=== PATIENT | female | born 1940 | race Caucasian/White ===

== ENCOUNTER 2017-12-06 07:41 | Inpatient (IN) | payer MEDICARE ==
[2017-12-06] MEDS ORDERED: SODIUM CHLORIDE 0.9% 500 ML IV ONE (07:50)
--- NOTE | 2017-12-06 07:58 | ED ---
General Adult HPI - General Stated complaint: UTI Time Seen by Provider: 12/06/17 07:41 Source: RN notes reviewed - History of Present Illness Initial comments: This is a 77-year-old female who presents emergency department via EMS for altered mental status. According to the [facility] the patient has had altered mental status for a few weeks now and they have noted now that she has urinary tract infection that she would not keep her IV in and she was becoming aggressive so they sent to [facility]. The patient has been to [facility] which is also attached to the [facility] but no explanation was given to us as to why they diverted from [facility] to bring her here. According to EMS she has been stable in route but she is only alert and oriented 1 wears a few weeks ago she was alert and oriented 4. Patient is unable to give any history there is no family member with the patient and there is no caregiver with the patient. - Related Data Home Medications Medication Instructions Recorded Confirmed Aspirin 81 mg PO DAILY@79912/06/17 12/06/17 Calcium Carbonate [Tums] 1,000 mg PO Q4H PRN 12/06/17 12/06/17 Heparin Sodium,Porcine [Heparin 5,000 unit SQ TID@12/06/17 12/06/17 Sodium] LORazepam [Ativan] 1 mg PO TID@12/06/17 12/06/17 Levothyroxine Sodium [Synthroid] 50 mcg PO DAILY 12/06/17 12/06/17 Metoprolol Tartrate [Lopressor] 50 mg PO BID@799,199912/06/17 12/06/17 Multivitamins, Thera [Multivitamin 1 tab PO DAILY@0800 12/06/17 12/06/17 (formulary)] Allergies Allergy/AdvReac Type Severity Reaction Status Date / Time Penicillins Allergy Unknown Verified 12/06/17 07:55 Review of Systems ROS Statement: Those systems with pertinent positive or pertinent negative responses have been documented in the HPI. ROS Other: All systems not noted in ROS Statement are negative. General Exam - General Exam Comments Initial Comments: GENERAL: Patient is well-developed and well-nourished. Patient is nontoxic and well- hydrated and is in no acute distress. ENT: Neck is soft and supple. No significant lymphadenopathy is noted. Oropharynx is clear. Moist mucous membranes. Neck has full range of motion without eliciting any pain. EYES: The sclera were anicteric and conjunctiva were pink and moist. Extraocular movements were intact and pupils were equal round and reactive to light. Eyelids were unremarkable. PULMONARY: Unlabored respirations. Good breath sounds bilaterally. No audible rales rhonchi or wheezing was noted. CARDIOVASCULAR: There is a regular rate and rhythm without any murmurs gallops or rubs. ABDOMEN: Soft and nontender with normal bowel sounds. No palpable organomegaly was noted. There is no palpable pulsatile mass. SKIN: Skin is clear with no lesions or rashes and otherwise unremarkable. NEUROLOGIC: Patient is alert and oriented 1. Cranial nerves II through XII are grossly intact. Motor and sensory are also intact. Normal speech, volume and content. Symmetrical smile. MUSCULOSKELETAL: Normal extremities with adequate strength and full range of motion. No lower extremity swelling or edema. No calf tenderness. LYMPHATICS: No significant lymphadenopathy is noted PSYCHIATRIC: Patient is significantly altered unable to assess her psychiatric baseline Course Vital Signs 12/06/17 12/06/17 07:46 08:33 Temperature 97.9 F 98.2 F Pulse Rate 64 66 Respiratory 14 14 Rate Blood Pressure 123/66 133/58 O2 Sat by Pulse 91 L 99 Oximetry Medical Decision Making - Medical Decision Making EKG shows normal sinus rhythm at 67 bpm MN interval is 176 QRS is 80 QT interval 448 QTC is 473. Patient's EKG shows slight T-wave inversions in precordial leads V2 through V6. Chest x-ray showed no acute abnormality. CT of the brain showed no acute abnormality. Patient was sent with results of a urine culture that showed enterococcus in her urine. Though we don't have any signs of urinary tract infection with our urinalysis we will be treating for UTI. According to staff approximately one month ago patient was alert and oriented 4. I spoke with the [facility] hospitalist and admitted the patient wrote admitting orders I wrote for antibiotics on the floor - Lab Data Result diagrams: 12/06/17 08:13 12/06/17 08:13 Lab Results 12/06/17 12/06/17 12/06/17 Range/Units 08:13 08:13 08:13 WBC 6.3 (3.8-10.6) k/uL RBC 2.64 L (3.80-5.40) m/uL Hgb 9.6 L (11.4-16.0) gm/dL Hct 30.1 L (34.0-46.0) % MCV 114.1 H (80.0-100.0) fL MCH 36.4 H (25.0-35.0) pg MCHC 31.9 (31.0-37.0) g/dL RDW 13.9 (11.5-15.5) % Plt Count 223 (150-450) k/uL Neutrophils % 72 % Lymphocytes % 13 % Monocytes % 7 % Eosinophils % 3 % Basophils % 1 % Neutrophils # 4.5 (1.3-7.7) k/uL Lymphocytes # 0.8 L (1.0-4.8) k/uL Monocytes # 0.5 (0-1.0) k/uL Eosinophils # 0.2 (0-0.7) k/uL Basophils # 0.1 (0-0.2) k/uL Manual Slide Review Performed Macrocytosis Marked PT (9.0-12.0) sec INR (<1.2) APTT (22.0-30.0) sec Sodium 140 (137-145) mmol/L Potassium 3.5 (3.5-5.1) mmol/L Chloride 110 H (98-107) mmol/L Carbon Dioxide 21 L (22-30) mmol/L Anion Gap 9 mmol/L BUN 13 (7-17) mg/dL Creatinine 0.68 (0.52-1.04) mg/dL Est GFR (CKD-EPI)AfAm >90 (>60 ml/min/1.73 sqM) Est GFR (CKD-EPI)NonAf 86 (>60 ml/min/1.73 sqM) Glucose 83 (74-99) mg/dL Calcium 8.5 (8.4-10.2) mg/dL Magnesium 1.4 L (1.6-2.3) mg/dL Total Bilirubin 2.9 H (0.2-1.3) mg/dL AST 77 H (14-36) U/L ALT 40 (9-52) U/L Alkaline Phosphatase 195 H (38-126) U/L Ammonia (<30) umol/L Total Creatine Kinase 57 (30-135) U/L CK-MB (CK-2) 1.2 (0.0-2.4) ng/mL CK-MB (CK-2) Rel Index 2.1 Troponin I 0.064 H* (0.000-0.034) ng/mL Total Protein 5.7 L (6.3-8.2) g/dL Albumin 2.9 L (3.5-5.0) g/dL Urine Color Urine Appearance (Clear) Urine pH (5.0-8.0) Ur Specific [place] (1.001-1.035) Urine Protein (Negative) Urine Glucose (UA) (Negative) Urine Ketones (Negative) Urine Blood (Negative) Urine Nitrite (Negative) Urine Bilirubin (Negative) Urine Urobilinogen (<2.0) mg/dL Ur Leukocyte Esterase (Negative) Urine Opiates Screen (NotDetected) Ur Oxycodone Screen (NotDetected) Urine Methadone Screen (NotDetected) Ur Propoxyphene Screen (NotDetected) Ur Barbiturates Screen (NotDetected) U Tricyclic Antidepress (NotDetected) Ur Phencyclidine Scrn (NotDetected) Ur Amphetamines Screen (NotDetected) U Methamphetamines Scrn (NotDetected) U Benzodiazepines Scrn (NotDetected) Urine Cocaine Screen (NotDetected) U Marijuana (THC) Screen (NotDetected) 12/06/17 12/06/17 12/06/17 Range/Units 08:13 08:13 08:22 WBC (3.8-10.6) k/uL RBC (3.80-5.40) m/uL Hgb (11.4-16.0) gm/dL Hct (34.0-46.0) % MCV (80.0-100.0) fL MCH (25.0-35.0) pg MCHC (31.0-37.0) g/dL RDW (11.5-15.5) % Plt Count (150-450) k/uL Neutrophils % % Lymphocytes % % Monocytes % % Eosinophils % % Basophils % % Neutrophils # (1.3-7.7) k/uL Lymphocytes # (1.0-4.8) k/uL Monocytes # (0-1.0) k/uL Eosinophils # (0-0.7) k/uL Basophils # (0-0.2) k/uL Manual Slide Review Macrocytosis PT 11.5 (9.0-12.0) sec INR 1.2 H (<1.2) APTT 24.9 (22.0-30.0) sec Sodium (137-145) mmol/L Potassium (3.5-5.1) mmol/L Chloride (98-107) mmol/L Carbon Dioxide (22-30) mmol/L Anion Gap mmol/L BUN (7-17) mg/dL Creatinine (0.52-1.04) mg/dL Est GFR (CKD-EPI)AfAm (>60 ml/min/1.73 sqM) Est GFR (CKD-EPI)NonAf (>60 ml/min/1.73 sqM) Glucose (74-99) mg/dL Calcium (8.4-10.2) mg/dL Magnesium (1.6-2.3) mg/dL Total Bilirubin (0.2-1.3) mg/dL AST (14-36) U/L ALT (9-52) U/L Alkaline Phosphatase (38-126) U/L Ammonia <9 (<30) umol/L Total Creatine Kinase (30-135) U/L CK-MB (CK-2) (0.0-2.4) ng/mL CK-MB (CK-2) Rel Index Troponin I (0.000-0.034) ng/mL Total Protein (6.3-8.2) g/dL Albumin (3.5-5.0) g/dL Urine Color Yellow Urine Appearance Clear (Clear) Urine pH 6.5 (5.0-8.0) Ur Specific [place] 1.011 (1.001-1.035) Urine Protein Negative (Negative) Urine Glucose (UA) Negative (Negative) Urine Ketones Negative (Negative) Urine Blood Negative (Negative) Urine Nitrite Negative (Negative) Urine Bilirubin Negative (Negative) Urine Urobilinogen <2.0 (<2.0) mg/dL Ur Leukocyte Esterase Negative (Negative) Urine Opiates Screen Not Detected (NotDetected) Ur Oxycodone Screen Not Detected (NotDetected) Urine Methadone Screen Not Detected (NotDetected) Ur Propoxyphene Screen Not Detected (NotDetected) Ur Barbiturates Screen Not Detected (NotDetected) U Tricyclic Antidepress Not Detected (NotDetected) Ur Phencyclidine Scrn Not Detected (NotDetected) Ur Amphetamines Screen Not Detected (NotDetected) U Methamphetamines Scrn Not Detected (NotDetected) U Benzodiazepines Scrn Detected H (NotDetected) Urine Cocaine Screen Not Detected (NotDetected) U Marijuana (THC) Screen Not Detected (NotDetected) Disposition Clinical Impression: Altered mental status, Urinary tract infection Disposition: ADMITTED IP TO THIS HOSP Referrals: Nonstaff,Physician [Primary Care Provider] - 1-2 days Time of Disposition: 09:24
[2017-12-06] MEDS ORDERED: cefTRIAXone IN SWFI 1,000 MG/10 ML SYRINGE IVP STA (08:00)
[2017-12-06 08:27] LABS: Basophils # (A) 0.1 k/uL (0-0.2); Basophils % (A) 1 %; Eosinophils # (A) 0.2 k/uL (0-0.7); Eosinophils % (A) 3 %; HCT 30.1 % (34.0-46.0); HGB 9.6 gm/dL (11.4-16.0); Lymphocytes # (A) 0.8 k/uL (1.0-4.8); Lymphocytes % (A) 13 %; MCH 36.4 pg (25.0-35.0); MCHC 31.9 g/dL (31.0-37.0); MCV 114.1 fL (80.0-100.0); Macrocytosis Marked; Mean Platelet Volume 7.3; Monocytes # (A) 0.5 k/uL (0-1.0); Monocytes % (A) 7 %; Neutrophils # (A) 4.5 k/uL (1.3-7.7); Neutrophils % (A) 72 %; Platelet Count 223 k/uL (150-450); RBC 2.64 m/uL (3.80-5.40); RDW 13.9 % (11.5-15.5); WBC 6.3 k/uL (3.8-10.6)
[2017-12-06 08:35] LABS: Appearance,Urine Clear (Clear); Bilirubin,Urine Negative (Negative); Blood,Urine Negative (Negative); Color,Urine Yellow; Glucose,Urine (UA) Negative (Negative); Ketones,Urine Negative (Negative); Leukocyte Esterase,Urine Negative (Negative); Nitrite,Urine Negative (Negative); PH, Urine 6.5 (5.0-8.0); Protein,Urine Negative (Negative); Specific Gravity,Urine 1.011 (1.001-1.035); Urobilinogen,Urine <2.0 mg/dL (<2.0)
[2017-12-06 08:35] LABS: INR 1.2 (<1.2)
[2017-12-06 08:36] LABS: Partial Thromboplastin Time 24.9 sec (22.0-30.0); Prothrombin Time 11.5 sec (9.0-12.0)
[2017-12-06 08:40] LABS: ALT 40 U/L (9-52); AST 77 U/L (14-36); Albumin 2.9 g/dL (3.5-5.0); Alkaline Phosphatase 195 U/L (38-126); Anion Gap 9 mmol/L; Blood Urea Nitrogen 13 mg/dL (7-17); Calcium 8.5 mg/dL (8.4-10.2); Carbon Dioxide 21 mmol/L (22-30); Chloride 110 mmol/L (98-107); Glucose 83 mg/dL (74-99); Magnesium 1.4 mg/dL (1.6-2.3); Potassium 3.5 mmol/L (3.5-5.1); Sodium 140 mmol/L (137-145); Total Bilirubin 2.9 mg/dL (0.2-1.3); Total Protein 5.7 g/dL (6.3-8.2)
[2017-12-06 08:46] LABS: Amphetamine Screen,Urine Not Detected (NotDetected); Barbiturate Screen,Urine Not Detected (NotDetected); Benzodiazepines Screen,Urine Detected (NotDetected); Cocaine Screen,Urine Not Detected (NotDetected); Methadone Screen, Urine Not Detected (NotDetected); Opiate Screen,Urine Not Detected (NotDetected); Oxycodone Screen, Urine Not Detected (NotDetected); Phencyclidine Screen,Urine Not Detected (NotDetected); Tricyclic Antidepressant,Urine Not Detected (NotDetected); Urn Cannabinoid Scrn Not Detected (NotDetected)
[2017-12-06 08:51] LABS: Creatine Kinase MB 1.2 ng/mL (0.0-2.4)
[2017-12-06 09:00] LABS: Troponin I 0.064 ng/mL (0.000-0.034)
--- NOTE | 2017-12-06 09:02 | XR ---
EXAMINATION TYPE: XR chest 2V DATE OF EXAM: 12/06/2017 COMPARISON: NONE HISTORY: Altered mental status TECHNIQUE: Frontal and lateral views of the chest are obtained. FINDINGS: Coronary artery calcifications are extensive, the heart is enlarged. No evident airspace d isease, pneumothorax, or pleural effusion. There are overlying cardiac leads. Pulmonary vascularity a nd elaina within normal limits. There is eventration of the right hemidiaphragm. IMPRESSION: Cardiomegaly, coronary artery disease.
--- NOTE | 2017-12-06 09:18 | CT ---
EXAMINATION TYPE: CT brain wo con DATE OF EXAM: 12/06/2017 COMPARISON: NONE HISTORY: Altered Mental Status CT DLP: [address] of the brain was performed. The ventricles, basal cisterns and sulci overlying the cerebral convexities demonstrate mild enlargem ent. There is no evidence for intracranial hemorrhage or sulcal effacement. There is decreased attenuation about the periventricular white matter and deep white matter of both c erebral hemispheres, compatible with chronic small vessel ischemia. Differential diagnosis does inclu de demyelination. No mass effects are seen.No midline shift. Osseous calvarium is intact. If symptoms persist consider MRI. IMPRESSION: 1. Age related atrophic and chronic small vessel ischemic change without acute intracranial process s een at this time.
[2017-12-06] MEDS ORDERED: SODIUM CHLORIDE 0.9% 1,000 ML IV ONE (09:24)
[2017-12-06] MEDS ORDERED: CALCIUM CARBONATE 500 MG CHEWABLE PO PRN (10:29)
--- NOTE | 2017-12-06 12:56 | US ---
EXAMINATION TYPE: US abdomen complete DATE OF EXAM: 12/06/2017 COMPARISON: NONE CLINICAL HISTORY: Elevated Bilirubin. EXAM MEASUREMENTS: Liver Length: 12.5 cm Gallbladder Wall: 0.4 cm CBD: 0.7 cm Spleen: 9.7 cm Right Kidney: 10.3 x 4.6 x 4.4 cm Left Kidney: 9.0 x 4.1 x 4.2 cm Patient here for elevated bilirubin and altered mental status. Patient unable to cooperate with exami ner making exam technically difficult and limited throughout. Pancreas: Tail obscured by overlying bowel gas Liver: multiple probable liver cysts, difficult to visualize due to lack of patient cooperation, lar gest appears in left lobe 3.4 cm, unable to visualize in sag, limited assessment of liver, there is s omewhat coarse echotexture Gallbladder: possible stones vs sludge seen at fold Evidence for sonographic Win's sign: no CBD: dilated Spleen: limited visualization Right Kidney: limited visualization, inferior pole obscured by bowel gas Left Kidney: limited visualization, inferior pole obscured by bowel gas and cortical medullary diffe rentiation is maintained bilaterally Upper IVC: wnl Abd Aorta: Atheromatous changes without aneurysm There is no ascites. IMPRESSION: Technologist reports a limited exam. Possible tumefactive sludge within the gallbladder, question gallbladder wall thickening, correlate for cholecystitis. Possible hepatic steatosis or hepa tocellular disease.
[2017-12-06] MEDS: MAGNESIUM SULFATE-D5W PMX 1 GM in DEXTROSE/WATER 1 100ML.BAG IVPB SCH ×2 (13:36→15:23)
[2017-12-06 14:10] LABS: Glucose,Whole Blood 136 mg/dL (75-99)
[2017-12-06] MEDS: HEPARIN SODIUM,PORCINE 5,000 UNIT/ML 1 ML VIAL SQ SCH ×3 (17:20→23:37)
--- NOTE | 2017-12-06 23:36 | P.HPIM ---
History of Present Illness H&P Date: 12/06/17 Chief Complaint: Altered mental status Patient is a 77-year-old female with known history of hypertension was sent to ER from extended care facility due to altered mental status. According to the [facility] the patient has had altered mental status for a few weeks now and they have noted now that she has urinary tract infection that she would not keep her IV in and she was becoming aggressive so they sent to [facility]. The patient has been to [facility] prior to be transferred to [facility]. According to EMS she has been stable in route but she is only alert and oriented 1 . few weeks ago she was alert and oriented 4. Patient denied any complaints of abdominal pain. No nausea vomiting. No chest pain or shortness of breath. Patient does not have any fever or chills. Patient is unable to give any history there is no family member with the patient and there is no caregiver with the patient. At the [facility] patient is being treated for enterococcus urinary tract infection. UA is negative at this time CT head showed use related atrophic changes and chronic small was a disease without acute intracranial process Chest x-ray no intracranial process EKG sinus rhythm Troponin 0.064 and 0.033 Bilirubin 2.9. Slightly elevated AST Ultrasound of ABDOMEN SHOWED gallbladder sludge. Possible cholecystitis. Hepatocellular disease and fatty infiltration. Review of Systems Complete review of systems could not be obtained from the patient Past Medical History Past Medical History: Hypertension History of Any Multi-Drug Resistant Organisms: Unobtainable Past Surgical History: Unable to Obtain Past Psychological History: Unable to Obtain Smoking Status: Unknown if ever smoked Past Alcohol Use History: Unable to Obtain Past Drug Use History: Unable to Obtain - Past Family History Father Additional Family Medical History / Comment(s): Father was an alcoholic. Mother Additional Family Medical History / Comment(s): Mother is an alcoholic. Medications and Allergies Home Medications Medication Instructions Recorded Confirmed Type Aspirin 81 mg PO DAILY@0800 12/06/17 12/06/17 History Calcium Carbonate [Tums] 1,000 mg PO Q4H PRN 12/06/17 12/06/17 History Heparin Sodium,Porcine [Heparin 5,000 unit SQ TID@,,12/06/17 12/06/17 History Sodium] LORazepam [Ativan] 1 mg PO TID@,14,22 12/06/17 12/06/17 History Levothyroxine Sodium [Synthroid] 50 mcg PO DAILY 12/06/17 12/06/17 History Metoprolol Tartrate [Lopressor] 50 mg PO BID@799,199912/06/17 12/06/17 History Multivitamins, Thera [Multivitamin 1 tab PO DAILY@0800 12/06/17 12/06/17 History (formulary)] Allergies Allergy/AdvReac Type Severity Reaction Status Date / Time Penicillins Allergy Unknown Verified 12/06/17 07:55 Physical Exam Vitals: Vital Signs Temp Pulse Resp BP Pulse Ox 12/06/17 09:30 97.5 F L 751 H 6 L 136/72 97 12/06/17 08:33 98.2 F 66 14 133/58 99 12/06/17 07:46 97.9 F 64 14 123/66 91 L Intake and Output 12/05/17 12/06/17 12/06/17 22:59 06:59 14:59 Other: Weight 58.967 kg PHYSICAL EXAMINATION: Patient is lying in the bed comfortably, no acute distress, awake alert and oriented 1.. HEENT: Normocephalic. Neck is supple. Pupils reactive. Nostrils clear. Oral cavity is moist. Ears reveal no drainage. Neck reveals no JVD, carotid bruits, or thyromegaly. CHEST EXAMINATION: Trachea is central. Symmetrical expansion. No wheezing. Lung merrill clear to auscultation and percussion. CARDIAC: Normal S1, S2 with no gallops. No murmurs ABDOMEN: Soft. Bowel sounds normal. No organomegaly. No abdominal bruits. Extremities: reveal no edema. No clubbing or cyanosis Neurologically awake, alert, oriented x1 with well-coordinated movements. No focal deficits noted Skin: No rash or skin lesions. Psychiatric: Cooperative. Trying to get out of the bed. Will not basis completely Musculoskeletal: No joint swelling or deformity. Normal range of motion. Results CBC & Chem 7: 12/06/17 08:13 12/06/17 08:13 Labs: Abnormal Lab Results - Last 24 Hours (Table) 12/06/17 12/06/17 12/06/17 Range/Units 08:13 08:13 08:13 RBC 2.64 L (3.80-5.40) m/uL Hgb 9.6 L (11.4-16.0) gm/dL Hct 30.1 L (34.0-46.0) % MCV 114.1 H (80.0-100.0) fL MCH 36.4 H (25.0-35.0) pg Lymphocytes # 0.8 L (1.0-4.8) k/uL INR (<1.2) Chloride 110 H (98-107) mmol/L Carbon Dioxide 21 L (22-30) mmol/L Magnesium 1.4 L (1.6-2.3) mg/dL Total Bilirubin 2.9 H (0.2-1.3) mg/dL AST 77 H (14-36) U/L Alkaline Phosphatase 195 H (38-126) U/L Troponin I 0.064 H* (0.000-0.034) ng/mL Total Protein 5.7 L (6.3-8.2) g/dL Albumin 2.9 L (3.5-5.0) g/dL U Benzodiazepines Scrn (NotDetected) 12/06/17 12/06/17 Range/Units 08:13 08:22 RBC (3.80-5.40) m/uL Hgb (11.4-16.0) gm/dL Hct (34.0-46.0) % MCV (80.0-100.0) fL MCH (25.0-35.0) pg Lymphocytes # (1.0-4.8) k/uL INR 1.2 H (<1.2) Chloride (98-107) mmol/L Carbon Dioxide (22-30) mmol/L Magnesium (1.6-2.3) mg/dL Total Bilirubin (0.2-1.3) mg/dL AST (14-36) U/L Alkaline Phosphatase (38-126) U/L Troponin I (0.000-0.034) ng/mL Total Protein (6.3-8.2) g/dL Albumin (3.5-5.0) g/dL U Benzodiazepines Scrn Detected H (NotDetected) Thrombosis Risk Factor Assmnt - DVT/VTE Prophylaxis DVT/VTE Prophylaxis: Pharmacologic Prophylaxis ordered Assessment and Plan Assessment: Altered mental status. Possible metabolic encephalopathy Recent urinary tract infection with enterococcus as per [facility] report Elevated bilirubin with gallbladder sludge. Possible acute cholecystitis Elevated troponin possible type II [place] Hypertension history Hypokalemia and hypomagnesemia\ Macrocytic anemia. DVT prophylaxis Plan: Patient will be continued on antibiotics in the form of ceftriaxone for urinary tract infection and follow-up urine culture report. Replace electrolyte. Ultrasound of the abdomen was done and general surgery will be consulted. Repeat CBC and BMP tomorrow. Further recommendations based on the clinical course. Time with Patient: Greater than 30
[2017-12-06] MEDS: LORazepam 1 MG TAB PO PRN (23:37)
[2017-12-07] MEDS: LEVOTHYROXINE 50 MCG TAB PO SCH (06:36)
[2017-12-07 06:41] LABS: Basophils # (A) 0.1 k/uL (0-0.2); Basophils % (A) 1 %; Eosinophils # (A) 0.2 k/uL (0-0.7); Eosinophils % (A) 4 %; HCT 28.6 % (34.0-46.0); Hypochromasia Slight; Lymphocytes # (A) 1.1 k/uL (1.0-4.8); Lymphocytes % (A) 21 %; MCH 36.6 pg (25.0-35.0); MCHC 31.4 g/dL (31.0-37.0); MCV 116.3 fL (80.0-100.0); Mean Platelet Volume 7.4; Monocytes # (A) 0.4 k/uL (0-1.0); Monocytes % (A) 8 %; Neutrophils # (A) 3.3 k/uL (1.3-7.7); Neutrophils % (A) 62 %; Platelet Count 193 k/uL (150-450); RBC 2.46 m/uL (3.80-5.40); RDW 13.8 % (11.5-15.5); WBC 5.2 k/uL (3.8-10.6)
[2017-12-07 06:50] LABS: Macrocytosis Marked
[2017-12-07 06:51] LABS: ALT 39 U/L (9-52); AST 71 U/L (14-36); Albumin 2.6 g/dL (3.5-5.0); Alkaline Phosphatase 181 U/L (38-126); Anion Gap 9 mmol/L; Blood Urea Nitrogen 7 mg/dL (7-17); Carbon Dioxide 17 mmol/L (22-30); Chloride 112 mmol/L (98-107); Glucose 85 mg/dL (74-99); Potassium 3.4 mmol/L (3.5-5.1); Sodium 138 mmol/L (137-145); Total Bilirubin 2.5 mg/dL (0.2-1.3); Total Protein 5.3 g/dL (6.3-8.2)
[2017-12-07] MEDS ORDERED: Potassium Replacement Protocol 1 EACH MISC MISCELLANE PRN (08:56)
[2017-12-07] MEDS: cefTRIAXone IN SWFI 1,000 MG/10 ML SYRINGE IVP SCH (09:33)
[2017-12-07] MEDS: ASPIRIN 81 MG PO SCH (09:44)
[2017-12-07] MEDS: HEPARIN SODIUM,PORCINE 5,000 UNIT/ML 1 ML VIAL SQ SCH ×3 (09:44→23:36)
[2017-12-07] MEDS: MULTIVITAMINS, THERA 1 EACH TAB PO SCH (09:45)
[2017-12-07] MEDS: MAGNESIUM SULFATE-D5W PMX 1 GM in DEXTROSE/WATER 1 100ML.BAG IVPB SCH ×2 (09:45→11:31)
[2017-12-07] MEDS: POTASSIUM CHLORIDE ER 20 MEQ TAB.ER PO SCH ×2 (09:45→11:31)
--- NOTE | 2017-12-07 13:44 | P.GSCN ---
History of Present Illness Consult date: 12/07/17 Reason for Consult: Gallstones History of present illness: Patient hospitalized because of change in mental status. She stays at the intermediate. She was disoriented. Denies pain. No nausea or vomiting. Tolerating diet. Liver enzymes were slightly elevated. For that reason an abdominal ultrasound was ordered and shows possible gallstones or sludge. Patient was also thought to have hepatocellular disease on ultrasound. Patient is upset at the floor staff this morning. She states she is going home. She refuses any physical exam at this time. She is afebrile. Review of Systems ROS unobtainable: due to mental status Past Medical History Past Medical History: Hypertension Additional Past Medical History / Comment(s): Pt recently admitted to [facility] with UTI and has had confusion for the past few weeks. Other hx: Hypothyroid, insomnia, fatty liver, ETOH abuse, UTIs-current UTI. History of Any Multi-Drug Resistant Organisms: Unobtainable Past Surgical History: Unable to Obtain Additional Past Surgical History / Comment(s): Bilateral cataract removals, L arm fracture with surgical repair-unsure if any hardware. Past Anesthesia/Blood Transfusion Reactions: No Reported Reaction Past Psychological History: Unable to Obtain Smoking Status: Unknown if ever smoked Past Alcohol Use History: Unable to Obtain Past Drug Use History: Unable to Obtain - Past Family History Father Additional Family Medical History / Comment(s): Father was an alcoholic. Mother Additional Family Medical History / Comment(s): Mother is an alcoholic. Medications and Allergies Home Medications Medication Instructions Recorded Confirmed Type Aspirin 81 mg PO DAILY@0800 12/06/17 12/06/17 History Calcium Carbonate [Tums] 1,000 mg PO Q4H PRN 12/06/17 12/06/17 History Heparin Sodium,Porcine [Heparin 5,000 unit SQ TID@12/06/17 12/06/17 History Sodium] LORazepam [Ativan] 1 mg PO TID@12/06/17 12/06/17 History Levothyroxine Sodium [Synthroid] 50 mcg PO DAILY 12/06/17 12/06/17 History Metoprolol Tartrate [Lopressor] 50 mg PO BID@0800,199912/06/17 12/06/17 History Multivitamins, Thera [Multivitamin 1 tab PO DAILY@0800 12/06/17 12/06/17 History (formulary)] Allergies Allergy/AdvReac Type Severity Reaction Status Date / Time Penicillins Allergy Unknown Verified 12/06/17 07:55 Surgical - Exam Vital Signs Temp Pulse Resp BP Pulse Ox 97.9 F 64 14 123/66 91 L 12/06/17 07:46 12/06/17 07:46 12/06/17 07:46 12/06/17 07:46 12/06/17 07:46 Physical exam: General: Well-developed, well-nourished Neuro: Alert and oriented to person and place Abdomen: Refused Results - Labs 12/07/17 06:20 12/07/17 06:20 Abnormal Lab Results - Last 24 Hours (Table) 12/06/17 12/07/17 12/07/17 Range/Units 14:06 06:20 06:20 RBC 2.46 L (3.80-5.40) m/uL Hgb 9.0 L (11.4-16.0) gm/dL Hct 28.6 L (34.0-46.0) % MCV 116.3 H (80.0-100.0) fL MCH 36.6 H (25.0-35.0) pg Potassium 3.4 L (3.5-5.1) mmol/L Chloride 112 H (98-107) mmol/L Carbon Dioxide 17 L (22-30) mmol/L POC Glucose (mg/dL) 136 H (75-99) mg/dL Calcium 8.0 L (8.4-10.2) mg/dL Total Bilirubin 2.5 H (0.2-1.3) mg/dL AST 71 H (14-36) U/L Alkaline Phosphatase 181 H (38-126) U/L Total Protein 5.3 L (6.3-8.2) g/dL Albumin 2.6 L (3.5-5.0) g/dL Diabetes panel 12/07/17 Range/Units 06:20 Sodium 138 (137-145) mmol/L Potassium 3.4 L (3.5-5.1) mmol/L Chloride 112 H (98-107) mmol/L Carbon Dioxide 17 L (22-30) mmol/L BUN 7 (7-17) mg/dL Creatinine 0.57 (0.52-1.04) mg/dL Glucose 85 (74-99) mg/dL Calcium 8.0 L (8.4-10.2) mg/dL AST 71 H (14-36) U/L ALT 39 (9-52) U/L Alkaline Phosphatase 181 H (38-126) U/L Total Protein 5.3 L (6.3-8.2) g/dL Albumin 2.6 L (3.5-5.0) g/dL Calcium panel 12/07/17 Range/Units 06:20 Calcium 8.0 L (8.4-10.2) mg/dL Albumin 2.6 L (3.5-5.0) g/dL Pituitary panel 12/07/17 Range/Units 06:20 Sodium 138 (137-145) mmol/L Potassium 3.4 L (3.5-5.1) mmol/L Chloride 112 H (98-107) mmol/L Carbon Dioxide 17 L (22-30) mmol/L BUN 7 (7-17) mg/dL Creatinine 0.57 (0.52-1.04) mg/dL Glucose 85 (74-99) mg/dL Calcium 8.0 L (8.4-10.2) mg/dL Adrenal panel 12/07/17 Range/Units 06:20 Sodium 138 (137-145) mmol/L Potassium 3.4 L (3.5-5.1) mmol/L Chloride 112 H (98-107) mmol/L Carbon Dioxide 17 L (22-30) mmol/L BUN 7 (7-17) mg/dL Creatinine 0.57 (0.52-1.04) mg/dL Glucose 85 (74-99) mg/dL Calcium 8.0 L (8.4-10.2) mg/dL Total Bilirubin 2.5 H (0.2-1.3) mg/dL AST 71 H (14-36) U/L ALT 39 (9-52) U/L Alkaline Phosphatase 181 H (38-126) U/L Total Protein 5.3 L (6.3-8.2) g/dL Albumin 2.6 L (3.5-5.0) g/dL Assessment and Plan (1) Gallbladder sludge Narrative/Plan: Given the lack of abdominal pain it seems unlikely that acute cholecystitis as the etiology for the patient's confusion. It is disconcerting that she is refusing an exam and I will reattempt an examination if the patient is not discharged today. Would consider HIDA scan if the concern for cholecystitis persists. Continue diet for now. Will follow. Current Visit: Yes Status: Acute Code(s): K82.8 - OTHER SPECIFIED DISEASES OF GALLBLADDER SNOMED Code(s): 29998312
--- NOTE | 2017-12-07 15:36 | P.PN ---
Subjective Progress Note Date: 12/07/17 Principal diagnosis: Altered mental status. Patient is a 77-year-old female with known history of hypertension was sent to ER from extended care facility due to altered mental status. According to the longterm the patient has had altered mental status for a few weeks now and they have noted now that she has urinary tract infection that she would not keep her IV in and she was becoming aggressive so they sent to [facility]. The patient has been to [facility] prior to be transferred to [facility]. According to EMS she has been stable in route but she is only alert and oriented 1 . few weeks ago she was alert and oriented 4. Patient denied any complaints of abdominal pain. No nausea vomiting. No chest pain or shortness of breath. Patient does not have any fever or chills. Patient is unable to give any history there is no family member with the patient and there is no caregiver with the patient. At the longterm patient is being treated for enterococcus urinary tract infection. UA is negative at this time CT head showed use related atrophic changes and chronic small was a disease without acute intracranial process Chest x-ray no intracranial process EKG sinus rhythm Troponin 0.064 and 0.033 Bilirubin 2.9. Slightly elevated AST Ultrasound of ABDOMEN SHOWED gallbladder sludge. Possible cholecystitis. Hepatocellular disease and fatty infiltration. 12/07/2017 Patient is more awake and oriented today. Able to sit in the chair and tolerating oral diet. Denied any complaints of abdominal pain. No nausea no vomiting. Discussed with her son at bedside. Aberrantly patient has been having alcohol abuse and last drink was about 10 days back. Patient was seen by general surgery and due to lack of pain and some likely acute cholecystitis. Bilirubin level is trending down and hepatocellular disease is likely due to alcohol abuse. No fever no chills. Patient is being continued on antibiotics in the form of ceftriaxone. Will follow up urine culture from outside hospital facility before antibiotics. Monitor for alcohol withdrawal symptoms as well. All other review of systems negative except the above Active Medications Generic Name Dose Route Start Last Admin Trade Name Freq PRN Reason Stop Dose Admin Aspirin 81 mg 12/07/17 08:00 12/07/17 09:44 Aspirin PO 81 mg DAILY@0800 XANDER Administration Calcium Carbonate/Glycine 1,000 mg 12/06/17 10:29 Tums PO Q4H PRN Dyspepsia Ceftriaxone Sodium 1,000 mg 12/07/17 09:00 12/07/17 09:33 Rocephin IVP 1,000 mg Q24HR XANDER Administration Heparin Sodium (Porcine) 5,000 unit 12/07/17 00:00 12/07/17 09:44 Heparin SQ 5,000 unit Q8HR XANDER Administration Levothyroxine Sodium 50 mcg 12/07/17 06:30 12/07/17 06:36 Synthroid PO 50 mcg 0630 XANDER Administration Lorazepam 1 mg 12/06/17 21:14 12/06/17 23:37 Ativan PO 1 mg Q8HR PRN Administration Anxiety Miscellaneous Information 1 each 12/07/17 08:56 Potassium Per Protocol MISCELLANE DAILY PRN Per Protocol Protocol Multivitamins 1 each 12/07/17 08:00 12/07/17 09:45 Theragran PO 1 each DAILY@0800 XANDER Administration Objective - Vital Signs Vital signs: Vital Signs Temp 97.1 F L 12/07/17 11:27 Pulse 81 12/07/17 11:27 Resp 20 12/07/17 11:27 BP 129/72 12/07/17 11:27 Pulse Ox 94 L 12/07/17 11:27 Intake & Output 12/06/17 12/07/17 12/07/17 18:59 06:59 18:59 Intake Total 180 625 120 Output Total 150 400 Balance 180 475 -280 Weight 58.967 kg 61.9 kg Intake: IV 10 0.9 10 Intake, IV Titration 375 Amount Sodium Chloride 0.9% 1, 375 000 ml @ 75 mls/hr IV . [id number] Rx#:[id number] Oral 180 240 120 Output: Urine 150 400 Other: Voiding Method Diaper Bedside Commode Bedside Commode Incontinent Diaper Incontinent # Voids 3 - Exam PHYSICAL EXAMINATION: Patient is lying in the bed comfortably, no acute distress, awake alert and oriented. Mild confusion.. HEENT: Normocephalic. Neck is supple. Pupils reactive. Nostrils clear. Oral cavity is moist. Ears reveal no drainage. Neck reveals no JVD, carotid bruits, or thyromegaly. CHEST EXAMINATION: Trachea is central. Symmetrical expansion. Lung merrill clear to auscultation and percussion. CARDIAC: Normal S1, S2 with no gallops. No murmurs ABDOMEN: Soft. Nontender. No right upper quadrant tenderness. Bowel sounds normal. No organomegaly. No abdominal bruits. Extremities: reveal no edema. No clubbing or cyanosis Neurologically awake, alert, oriented x3 with well-coordinated movements. No focal deficits noted Skin: No rash or skin lesions. Psychiatric: Coperative. Nonsuicidal Musculoskeletal: No joint swelling or deformity. Normal range of motion. - Labs CBC & Chem 7: 12/07/17 06:20 12/07/17 06:20 Labs: Abnormal Lab Results - Last 24 Hours (Table) 12/07/17 12/07/17 Range/Units 06:20 06:20 RBC 2.46 L (3.80-5.40) m/uL Hgb 9.0 L (11.4-16.0) gm/dL Hct 28.6 L (34.0-46.0) % MCV 116.3 H (80.0-100.0) fL MCH 36.6 H (25.0-35.0) pg Potassium 3.4 L (3.5-5.1) mmol/L Chloride 112 H (98-107) mmol/L Carbon Dioxide 17 L (22-30) mmol/L Calcium 8.0 L (8.4-10.2) mg/dL Total Bilirubin 2.5 H (0.2-1.3) mg/dL AST 71 H (14-36) U/L Alkaline Phosphatase 181 H (38-126) U/L Total Protein 5.3 L (6.3-8.2) g/dL Albumin 2.6 L (3.5-5.0) g/dL Assessment and Plan Assessment: Altered mental status. Possible metabolic encephalopathy. Resolving now. Recent urinary tract infection with enterococcus as per longterm report. Will follow-up urine culture report Alcohol abuse. Last drink in 10 days back Elevated bilirubin with gallbladder sludge. Suspected acute cholecystitis. Patient otherwise denied abdominal pain. Elevated troponin possible type II [place]. Troponin normalized now Hypertension history Hypokalemia and hypomagnesemia\. Replaced Macrocytic anemia.Likely related to EtOH abuse DVT prophylaxisHeparin subcu Plan: Patient will be continued on antibiotics in the form of ceftriaxone for urinary tract infection and follow-up urine culture report. Replace electrolyte. Ultrasound of the abdomen was done and general surgeryis following.. Repeat CBC and BMP tomorrow. Further recommendations based on the clinical course. Time with Patient: Greater than 30
[2017-12-07] MEDS: THIAMINE 100 MG TAB PO SCH (17:36)
[2017-12-07] MEDS: LORazepam 1 MG TAB PO PRN (21:58)
[2017-12-07] MEDS: METOPROLOL TARTRATE 50 MG TAB PO SCH (22:27)
[2017-12-08] MEDS: LEVOTHYROXINE 50 MCG TAB PO SCH ×2 (06:07→06:35)
[2017-12-08] MEDS: LORazepam 1 MG TAB PO PRN ×2 (06:07→22:10)
[2017-12-08 06:32] LABS: Basophils # (A) 0.1 k/uL (0-0.2); Basophils % (A) 1 %; Eosinophils # (A) 0.2 k/uL (0-0.7); Eosinophils % (A) 4 %; HGB 8.3 gm/dL (11.4-16.0); Lymphocytes # (A) 1.2 k/uL (1.0-4.8); Lymphocytes % (A) 22 %; MCH 36.1 pg (25.0-35.0); MCHC 32.1 g/dL (31.0-37.0); MCV 112.5 fL (80.0-100.0); Mean Platelet Volume 7.9; Monocytes # (A) 0.4 k/uL (0-1.0); Monocytes % (A) 8 %; Neutrophils # (A) 3.3 k/uL (1.3-7.7); Neutrophils % (A) 63 %; Platelet Count 185 k/uL (150-450); RBC 2.31 m/uL (3.80-5.40); RDW 13.7 % (11.5-15.5); WBC 5.3 k/uL (3.8-10.6)
[2017-12-08 06:42] LABS: Macrocytosis Marked
[2017-12-08 06:43] LABS: ALT 40 U/L (9-52); AST 74 U/L (14-36); Albumin 2.4 g/dL (3.5-5.0); Alkaline Phosphatase 189 U/L (38-126); Anion Gap 7 mmol/L; Blood Urea Nitrogen 5 mg/dL (7-17); Carbon Dioxide 19 mmol/L (22-30); Chloride 111 mmol/L (98-107); Glucose 92 mg/dL (74-99); Magnesium 1.9 mg/dL (1.6-2.3); Potassium 3.8 mmol/L (3.5-5.1); Sodium 137 mmol/L (137-145); Total Bilirubin 2.2 mg/dL (0.2-1.3); Total Protein 4.9 g/dL (6.3-8.2)
[2017-12-08] MEDS: cefTRIAXone IN SWFI 1,000 MG/10 ML SYRINGE IVP SCH (07:55)
[2017-12-08] MEDS: METOPROLOL TARTRATE 50 MG TAB PO SCH ×2 (07:55→22:08)
[2017-12-08] MEDS: THIAMINE 100 MG TAB PO SCH (07:55)
[2017-12-08] MEDS: FOLIC ACID 1 MG TAB PO SCH (07:55)
[2017-12-08] MEDS: ASPIRIN 81 MG PO SCH (07:55)
[2017-12-08] MEDS: MULTIVITAMINS, THERA 1 EACH TAB PO SCH (07:55)
[2017-12-08] MEDS: HEPARIN SODIUM,PORCINE 5,000 UNIT/ML 1 ML VIAL SQ SCH ×3 (07:56→23:28)
--- NOTE | 2017-12-08 15:13 | P.PN ---
Subjective Progress Note Date: 12/08/17 Principal diagnosis: Cholelithiasis Patient far less confused today. The patient's son is present at the bedside. She denies abdominal pain. Tolerating diet. Bilirubin today is 2.2. White blood cell count 5.3. According to the son the patient is a history of heavy alcohol use in the past. She was at [facility] approximately 1-2 months ago. An MRI of the abdomen was performed at that time likely MRCP. He was told that her underlying liver disease was the cause for her jaundice this at that time. Apparently her bilirubin was quite elevated at that time. Objective - Vital Signs Vital signs: Vital Signs Temp 97.7 F 12/08/17 14:19 Pulse 64 12/08/17 14:19 Resp 14 12/08/17 14:19 BP 112/65 12/08/17 14:19 Pulse Ox 99 12/08/17 14:19 Intake & Output 12/07/17 12/08/17 12/08/17 18:59 06:59 18:59 Intake Total 280 Output Total 1000 Balance -720 Weight 62.5 kg Intake: IV 160 0.9 160 Oral 120 Output: Urine 1000 Other: Voiding Method Toilet Toilet Toilet Bedside Commode Bedside Commode Bedside Commode # Voids 1 # Bowel Movements 1 - Exam Abdomen: Soft, nontender, nondistended - Labs CBC & Chem 7: 12/08/17 05:48 12/08/17 05:48 Labs: Abnormal Lab Results - Last 24 Hours (Table) 12/08/17 12/08/17 Range/Units 05:48 05:48 RBC 2.31 L (3.80-5.40) m/uL Hgb 8.3 L (11.4-16.0) gm/dL Hct 26.0 L (34.0-46.0) % MCV 112.5 H (80.0-100.0) fL MCH 36.1 H (25.0-35.0) pg Chloride 111 H (98-107) mmol/L Carbon Dioxide 19 L (22-30) mmol/L BUN 5 L (7-17) mg/dL Calcium 8.0 L (8.4-10.2) mg/dL Total Bilirubin 2.2 H (0.2-1.3) mg/dL AST 74 H (14-36) U/L Alkaline Phosphatase 189 H (38-126) U/L Total Protein 4.9 L (6.3-8.2) g/dL Albumin 2.4 L (3.5-5.0) g/dL Assessment and Plan (1) Gallbladder sludge Narrative/Plan: Will try to obtain the MRI results from [facility] done recently. No surgical intervention planned at this time. Current Visit: Yes Status: Acute Code(s): K82.8 - OTHER SPECIFIED DISEASES OF GALLBLADDER SNOMED Code(s): 30253041
--- NOTE | 2017-12-08 22:45 | P.PN ---
Subjective Progress Note Date: 12/08/17 Principal diagnosis: Altered mental status. Patient is a 77-year-old female with known history of hypertension was sent to ER from extended care facility due to altered mental status. According to the [facility] the patient has had altered mental status for a few weeks now and they have noted now that she has urinary tract infection that she would not keep her IV in and she was becoming aggressive so they sent to [facility]. The patient has been to [facility] prior to be transferred to [facility]. According to EMS she has been stable in route but she is only alert and oriented 1 . few weeks ago she was alert and oriented 4. Patient denied any complaints of abdominal pain. No nausea vomiting. No chest pain or shortness of breath. Patient does not have any fever or chills. Patient is unable to give any history there is no family member with the patient and there is no caregiver with the patient. At the [facility] patient is being treated for enterococcus urinary tract infection. UA is negative at this time CT head showed use related atrophic changes and chronic small was a disease without acute intracranial process Chest x-ray no intracranial process EKG sinus rhythm Troponin 0.064 and 0.033 Bilirubin 2.9. Slightly elevated AST Ultrasound of ABDOMEN SHOWED gallbladder sludge. Possible cholecystitis. Hepatocellular disease and fatty infiltration. 12/07/2017 Patient is more awake and oriented today. Able to sit in the chair and tolerating oral diet. Denied any complaints of abdominal pain. No nausea no vomiting. Discussed with her son at bedside. Aberrantly patient has been having alcohol abuse and last drink was about 10 days back. Patient was seen by general surgery and due to lack of pain and some likely acute cholecystitis. Bilirubin level is trending down and hepatocellular disease is likely due to alcohol abuse. No fever no chills. Patient is being continued on antibiotics in the form of ceftriaxone. Will follow up urine culture from outside hospital facility before antibiotics. Monitor for alcohol withdrawal symptoms as well. 12/08/2017 Patient is more awake and oriented today. Able to tolerate oral diet. No complaints of abdominal pain. No nausea vomiting or abdominal pain. Bilirubin level trending down to 2.2 today. Gen. surgery general surgery is following. Patient went into atrial fibrillation yesterday evening. Currently maintaining sinus rhythm. Started back on beta blockers. All other review of systems negative except the above Vital Signs 12/08/17 22:05 Pulse Rate [ 84 Pulse Oximetery ] Blood Pressure 139/78 [Left Arm] Objective - Vital Signs Vital signs: Vital Signs Temp 97.7 F 12/08/17 14:19 Pulse 64 12/08/17 14:19 Resp 14 12/08/17 14:19 BP 112/65 12/08/17 14:19 Pulse Ox 99 12/08/17 14:19 Intake & Output 12/08/17 12/08/17 12/09/17 06:59 18:59 06:59 Weight 62.5 kg Other: Voiding Method Toilet Toilet Bedside Commode Bedside Commode # Voids 1 # Bowel Movements 1 - Exam PHYSICAL EXAMINATION: Patient is lying in the bed comfortably, no acute distress, awake alert and oriented. Mild confusion.. HEENT: Normocephalic. Neck is supple. Pupils reactive. Nostrils clear. Oral cavity is moist. Ears reveal no drainage. Neck reveals no JVD, carotid bruits, or thyromegaly. CHEST EXAMINATION: Trachea is central. Symmetrical expansion. Lung merrill clear to auscultation and percussion. CARDIAC: Normal S1, S2 with no gallops. No murmurs ABDOMEN: Soft. Nontender. No right upper quadrant tenderness. Bowel sounds normal. No organomegaly. No abdominal bruits. Extremities: reveal no edema. No clubbing or cyanosis Neurologically awake, alert, oriented x3 with well-coordinated movements. No focal deficits noted Skin: No rash or skin lesions. Psychiatric: Coperative. Nonsuicidal Musculoskeletal: No joint swelling or deformity. Normal range of motion. - Labs CBC & Chem 7: 12/08/17 05:48 12/08/17 05:48 Labs: Abnormal Lab Results - Last 24 Hours (Table) 12/08/17 12/08/17 Range/Units 05:48 05:48 RBC 2.31 L (3.80-5.40) m/uL Hgb 8.3 L (11.4-16.0) gm/dL Hct 26.0 L (34.0-46.0) % MCV 112.5 H (80.0-100.0) fL MCH 36.1 H (25.0-35.0) pg Chloride 111 H (98-107) mmol/L Carbon Dioxide 19 L (22-30) mmol/L BUN 5 L (7-17) mg/dL Calcium 8.0 L (8.4-10.2) mg/dL Total Bilirubin 2.2 H (0.2-1.3) mg/dL AST 74 H (14-36) U/L Alkaline Phosphatase 189 H (38-126) U/L Total Protein 4.9 L (6.3-8.2) g/dL Albumin 2.4 L (3.5-5.0) g/dL Assessment and Plan Assessment: Altered mental status. Possible metabolic encephalopathy. Resolving now. Recent urinary tract infection with enterococcus as per [facility] report. Will follow-up urine culture report Alcohol abuse. Last drink in 10 days back Paroxysmal atrial fibrillation. Continue with aspirin. Elevated bilirubin with gallbladder sludge. Suspected acute cholecystitis. Patient otherwise denied abdominal pain. Elevated troponin possible type II [place]. Troponin normalized now Hypertension history Hypokalemia and hypomagnesemia\. Replaced Macrocytic anemia.Likely related to EtOH abuse DVT prophylaxisHeparin subcu Plan: Patient will be continued on antibiotics in the form of ceftriaxone for urinary tract infection and follow-up urine culture report. Replace electrolyte. Ultrasound of the abdomen was done and general surgeryis following.. No surgical intervention needed at this time Repeat CBC and BMP tomorrow. Further recommendations based on the clinical course. Time with Patient: Greater than 30
[2017-12-09] MEDS: LORazepam 1 MG TAB PO PRN ×2 (05:29→21:12)
[2017-12-09] MEDS: LEVOTHYROXINE 50 MCG TAB PO SCH (05:30)
[2017-12-09] MEDS: ASPIRIN 81 MG PO SCH (08:34)
[2017-12-09] MEDS: THIAMINE 100 MG TAB PO SCH (08:34)
[2017-12-09] MEDS: MULTIVITAMINS, THERA 1 EACH TAB PO SCH (08:34)
[2017-12-09] MEDS: METOPROLOL TARTRATE 50 MG TAB PO SCH ×2 (08:34→21:12)
[2017-12-09] MEDS: HEPARIN SODIUM,PORCINE 5,000 UNIT/ML 1 ML VIAL SQ SCH ×3 (08:34→23:42)
[2017-12-09] MEDS: FOLIC ACID 1 MG TAB PO SCH (08:34)
[2017-12-09] MEDS: cefTRIAXone IN SWFI 1,000 MG/10 ML SYRINGE IVP SCH (08:34)
[2017-12-09 08:59] LABS: Basophils # (A) 0.1 k/uL (0-0.2); Basophils % (A) 1 %; Eosinophils # (A) 0.2 k/uL (0-0.7); Eosinophils % (A) 3 %; HCT 35.2 % (34.0-46.0); Lymphocytes # (A) 1.3 k/uL (1.0-4.8); Lymphocytes % (A) 17 %; MCH 36.7 pg (25.0-35.0); MCHC 32.3 g/dL (31.0-37.0); MCV 113.9 fL (80.0-100.0); Macrocytosis Marked; Monocytes # (A) 0.5 k/uL (0-1.0); Monocytes % (A) 6 %; Neutrophils # (A) 5.5 k/uL (1.3-7.7); Neutrophils % (A) 71 %; Platelet Count 231 k/uL (150-450); RBC 3.09 m/uL (3.80-5.40); RDW 13.6 % (11.5-15.5); WBC 7.8 k/uL (3.8-10.6)
[2017-12-09 09:00] LABS: HGB 11.3 gm/dL (11.4-16.0)
[2017-12-09 09:01] LABS: Anion Gap 14 mmol/L; Blood Urea Nitrogen 4 mg/dL (7-17); Calcium 8.9 mg/dL (8.4-10.2); Carbon Dioxide 16 mmol/L (22-30); Chloride 109 mmol/L (98-107); Glucose 86 mg/dL (74-99); Potassium 3.7 mmol/L (3.5-5.1); Sodium 139 mmol/L (137-145)
[2017-12-09 10:21] LABS: Poikilocytosis (M) Present
[2017-12-09 12:18] LABS: ALT 44 U/L (9-52); AST 94 U/L (14-36); Albumin 3.3 g/dL (3.5-5.0); Alkaline Phosphatase 237 U/L (38-126); Total Bilirubin 2.6 mg/dL (0.2-1.3); Total Protein 6.5 g/dL (6.3-8.2)
--- NOTE | 2017-12-09 12:56 | P.PN ---
Subjective Progress Note Date: 12/09/17 Principal diagnosis: Cholelithiasis Patient somewhat confused again this morning. Son present at the bedside. The MRCP performed at [place] was reviewed and showed no evidence of choledocholithiasis, malignancy, or cholelithiasis. Today's bilirubin 2.6. Denies pain. Tolerating diet. Objective - Vital Signs Vital signs: Vital Signs Temp 98.5 F 12/09/17 05:54 Pulse 79 12/09/17 05:54 Resp 17 12/09/17 05:54 BP 110/69 12/09/17 05:54 Pulse Ox 97 12/09/17 05:54 Intake & Output 12/08/17 12/09/17 12/09/17 18:59 06:59 18:59 Other: Voiding Method Toilet Toilet Toilet Bedside Commode Bedside Commode Diaper Incontinent # Voids 2 - Exam Abdomen: Soft, nontender, nondistended - Labs CBC & Chem 7: 12/09/17 07:57 12/09/17 07:57 Labs: Abnormal Lab Results - Last 24 Hours (Table) 12/09/17 12/09/17 Range/Units 07:57 07:57 RBC 3.09 L (3.80-5.40) m/uL Hgb 11.3 L D (11.4-16.0) gm/dL MCV 113.9 H (80.0-100.0) fL MCH 36.7 H (25.0-35.0) pg Chloride 109 H (98-107) mmol/L Carbon Dioxide 16 L (22-30) mmol/L BUN 4 L (7-17) mg/dL Total Bilirubin 2.6 H (0.2-1.3) mg/dL AST 94 H (14-36) U/L Alkaline Phosphatase 237 H (38-126) U/L Albumin 3.3 L (3.5-5.0) g/dL Assessment and Plan (1) Gallbladder sludge Narrative/Plan: Continue diet as tolerated. Elevated liver enzymes on the basis of underlying liver disease from chronic alcohol use. No surgical intervention planned. We' ll sign off. Please contact if needed. Current Visit: Yes Status: Acute Code(s): K82.8 - OTHER SPECIFIED DISEASES OF GALLBLADDER SNOMED Code(s): 47615645
--- NOTE | 2017-12-10 00:01 | P.PN ---
Subjective Progress Note Date: 12/09/17 Principal diagnosis: Altered mental status. Patient is a 77-year-old female with known history of hypertension was sent to ER from extended care facility due to altered mental status. According to the [place] [facility] the patient has had altered mental status for a few weeks now and they have noted now that she has urinary tract infection that she would not keep her IV in and she was becoming aggressive so they sent to [facility]. The patient has been to [facility] prior to be transferred to [facility]. According to EMS she has been stable in route but she is only alert and oriented 1 . few weeks ago she was alert and oriented 4. Patient denied any complaints of abdominal pain. No nausea vomiting. No chest pain or shortness of breath. Patient does not have any fever or chills. Patient is unable to give any history there is no family member with the patient and there is no caregiver with the patient. At the [place] [facility] patient is being treated for enterococcus urinary tract infection. UA is negative at this time CT head showed use related atrophic changes and chronic small was a disease without acute intracranial process Chest x-ray no intracranial process EKG sinus rhythm Troponin 0.064 and 0.033 Bilirubin 2.9. Slightly elevated AST Ultrasound of ABDOMEN SHOWED gallbladder sludge. Possible cholecystitis. Hepatocellular disease and fatty infiltration. 12/07/2017 Patient is more awake and oriented today. Able to sit in the chair and tolerating oral diet. Denied any complaints of abdominal pain. No nausea no vomiting. Discussed with her son at bedside. Aberrantly patient has been having alcohol abuse and last drink was about 10 days back. Patient was seen by general surgery and due to lack of pain and some likely acute cholecystitis. Bilirubin level is trending down and hepatocellular disease is likely due to alcohol abuse. No fever no chills. Patient is being continued on antibiotics in the form of ceftriaxone. Will follow up urine culture from outside hospital facility before antibiotics. Monitor for alcohol withdrawal symptoms as well. 12/08/2017 Patient is more awake and oriented today. Able to tolerate oral diet. No complaints of abdominal pain. No nausea vomiting or abdominal pain. Bilirubin level trending down to 2.2 today. Gen. surgery general surgery is following. Patient went into atrial fibrillation yesterday evening. Currently maintaining sinus rhythm. Started back on beta blockers. 12/09/2017 Patient is more awake and oriented today. Tolerating oral diet. No complaints of abdominal pain. Heart rate is better controlled. No other acute overnight issues. Continue PT OT and and anticipate discharge next 24 hours. All other review of systems negative except the above Vital Signs 12/08/17 22:05 Pulse Rate [ 84 Pulse Oximetery ] Blood Pressure 139/78 [Left Arm] Objective - Vital Signs Vital signs: Vital Signs Temp 98.5 F 12/09/17 05:54 Pulse 79 12/09/17 05:54 Resp 17 12/09/17 05:54 BP 110/69 12/09/17 05:54 Pulse Ox 97 12/09/17 05:54 Intake & Output 12/08/17 12/09/17 12/09/17 18:59 06:59 18:59 Other: Voiding Method Toilet Toilet Toilet Bedside Commode Bedside Commode Diaper Incontinent # Voids 2 2 - Exam PHYSICAL EXAMINATION: Patient is lying in the bed comfortably, no acute distress, awake alert and oriented. Mild confusion.. HEENT: Normocephalic. Neck is supple. Pupils reactive. Nostrils clear. Oral cavity is moist. Ears reveal no drainage. Neck reveals no JVD, carotid bruits, or thyromegaly. CHEST EXAMINATION: Trachea is central. Symmetrical expansion. Lung merrill clear to auscultation and percussion. CARDIAC: Normal S1, S2 with no gallops. No murmurs ABDOMEN: Soft. Nontender. No right upper quadrant tenderness. Bowel sounds normal. No organomegaly. No abdominal bruits. Extremities: reveal no edema. No clubbing or cyanosis Neurologically awake, alert, oriented x3 with well-coordinated movements. No focal deficits noted Skin: No rash or skin lesions. Psychiatric: Coperative. Nonsuicidal Musculoskeletal: No joint swelling or deformity. Normal range of motion. - Labs CBC & Chem 7: 12/09/17 07:57 12/09/17 07:57 Labs: Abnormal Lab Results - Last 24 Hours (Table) 12/09/17 12/09/17 Range/Units 07:57 07:57 RBC 3.09 L (3.80-5.40) m/uL Hgb 11.3 L D (11.4-16.0) gm/dL MCV 113.9 H (80.0-100.0) fL MCH 36.7 H (25.0-35.0) pg Chloride 109 H (98-107) mmol/L Carbon Dioxide 16 L (22-30) mmol/L BUN 4 L (7-17) mg/dL Total Bilirubin 2.6 H (0.2-1.3) mg/dL AST 94 H (14-36) U/L Alkaline Phosphatase 237 H (38-126) U/L Albumin 3.3 L (3.5-5.0) g/dL Assessment and Plan Assessment: Altered mental status. Possible metabolic encephalopathy. Resolving now. Recent urinary tract infection with enterococcus as per [place] [facility] report. Will follow-up urine culture report Alcohol abuse. Last drink in 10 days back Paroxysmal atrial fibrillation. Continue with aspirin. Elevated bilirubin with gallbladder sludge. Suspected acute cholecystitis. Patient otherwise denied abdominal pain. Elevated troponin possible type II [place]. Troponin normalized now Hypertension history Hypokalemia and hypomagnesemia\. Replaced Macrocytic anemia.Likely related to EtOH abuse DVT prophylaxisHeparin subcu Plan: Patient will be continued on antibiotics in the form of ceftriaxone for urinary tract infection and follow-up urine culture report. Replace electrolyte. Ultrasound of the abdomen was done and general surgery is following.. No surgical intervention needed at this time Repeat CBC and BMP tomorrow. Further recommendations based on the clinical course. Time with Patient: Greater than 30
[2017-12-10] MEDS: LEVOTHYROXINE 50 MCG TAB PO SCH (05:52)
[2017-12-10] MEDS: METOPROLOL TARTRATE 50 MG TAB PO SCH ×2 (07:59→20:10)
[2017-12-10] MEDS: MULTIVITAMINS, THERA 1 EACH TAB PO SCH (07:59)
[2017-12-10] MEDS: HEPARIN SODIUM,PORCINE 5,000 UNIT/ML 1 ML VIAL SQ SCH ×2 (07:59→17:55)
[2017-12-10] MEDS: cefTRIAXone IN SWFI 1,000 MG/10 ML SYRINGE IVP SCH (07:59)
[2017-12-10] MEDS: ASPIRIN 81 MG PO SCH (07:59)
[2017-12-10] MEDS: LORazepam 1 MG TAB PO PRN ×2 (08:26→18:16)
[2017-12-10] MEDS: FOLIC ACID 1 MG TAB PO SCH (13:31)
[2017-12-10] MEDS: THIAMINE 100 MG TAB PO SCH (13:31)
[2017-12-10 14:16] VITALS: RESP 18
--- NOTE | 2017-12-11 00:59 | P.PN ---
Subjective Progress Note Date: 12/10/17 Principal diagnosis: Altered mental status. Patient is a 77-year-old female with known history of hypertension was sent to ER from extended care facility due to altered mental status. According to the snf the patient has had altered mental status for a few weeks now and they have noted now that she has urinary tract infection that she would not keep her IV in and she was becoming aggressive so they sent to [facility]. The patient has been to [facility] prior to be transferred to [facility]. According to EMS she has been stable in route but she is only alert and oriented 1 . few weeks ago she was alert and oriented 4. Patient denied any complaints of abdominal pain. No nausea vomiting. No chest pain or shortness of breath. Patient does not have any fever or chills. Patient is unable to give any history there is no family member with the patient and there is no caregiver with the patient. At the snf patient is being treated for enterococcus urinary tract infection. UA is negative at this time CT head showed use related atrophic changes and chronic small was a disease without acute intracranial process Chest x-ray no intracranial process EKG sinus rhythm Troponin 0.064 and 0.033 Bilirubin 2.9. Slightly elevated AST Ultrasound of ABDOMEN SHOWED gallbladder sludge. Possible cholecystitis. Hepatocellular disease and fatty infiltration. 12/07/2017 Patient is more awake and oriented today. Able to sit in the chair and tolerating oral diet. Denied any complaints of abdominal pain. No nausea no vomiting. Discussed with her son at bedside. Aberrantly patient has been having alcohol abuse and last drink was about 10 days back. Patient was seen by general surgery and due to lack of pain and some likely acute cholecystitis. Bilirubin level is trending down and hepatocellular disease is likely due to alcohol abuse. No fever no chills. Patient is being continued on antibiotics in the form of ceftriaxone. Will follow up urine culture from outside hospital facility before antibiotics. Monitor for alcohol withdrawal symptoms as well. 12/08/2017 Patient is more awake and oriented today. Able to tolerate oral diet. No complaints of abdominal pain. No nausea vomiting or abdominal pain. Bilirubin level trending down to 2.2 today. Gen. surgery general surgery is following. Patient went into atrial fibrillation yesterday evening. Currently maintaining sinus rhythm. Started back on beta blockers. 12/09/2017 Patient is more awake and oriented today. Tolerating oral diet. No complaints of abdominal pain. Heart rate is better controlled. No other acute overnight issues. Continue PT OT and and anticipate discharge next 24 hours. 12/10/2017 Patient denied any complaints today. Tolerating oral diet. No complaints of abdominal pain. No nausea vomiting or diarrhea. Anticipate discharged to rehab pending authorization. All other review of systems negative except the above Vital Signs 12/08/17 22:05 Pulse Rate [ 84 Pulse Oximetery ] Blood Pressure 139/78 [Left Arm] Objective - Vital Signs Vital signs: Vital Signs Temp 97.6 F 12/10/17 14:06 Pulse 65 12/10/17 14:06 Resp 18 12/10/17 14:06 BP 132/84 12/10/17 14:06 Pulse Ox 100 12/10/17 14:06 Intake & Output 12/10/17 12/10/17 12/11/17 06:59 18:59 06:59 Intake Total 100 240 Balance 100 240 Intake: Oral 100 240 Other: Voiding Method Toilet Toilet Diaper Diaper Incontinent Incontinent # Voids 2 1 - Exam PHYSICAL EXAMINATION: Patient is lying in the bed comfortably, no acute distress, awake alert and oriented. Mild confusion.. HEENT: Normocephalic. Neck is supple. Pupils reactive. Nostrils clear. Oral cavity is moist. Ears reveal no drainage. Neck reveals no JVD, carotid bruits, or thyromegaly. CHEST EXAMINATION: Trachea is central. Symmetrical expansion. Lung merrill clear to auscultation and percussion. CARDIAC: Normal S1, S2 with no gallops. No murmurs ABDOMEN: Soft. Nontender. No right upper quadrant tenderness. Bowel sounds normal. No organomegaly. No abdominal bruits. Extremities: reveal no edema. No clubbing or cyanosis Neurologically awake, alert, oriented x3 with well-coordinated movements. No focal deficits noted Skin: No rash or skin lesions. Psychiatric: Coperative. Nonsuicidal Musculoskeletal: No joint swelling or deformity. Normal range of motion. - Labs CBC & Chem 7: 12/09/17 07:57 12/09/17 07:57 Assessment and Plan Assessment: Altered mental status. Possible metabolic encephalopathy. Resolving now. Recent urinary tract infection with enterococcus as per snf report. Will follow-up urine culture report at snf. Alcohol abuse. Last drink in 10 days back. Monitor for withdrawal symptoms. Elevated liver enzymes and bilirubin and hepatocellular disease/fatty infiltration of the liver. Due to alcohol abuse. Paroxysmal atrial fibrillation. Continue with aspirin. Elevated bilirubin with gallbladder sludge. Suspected acute cholecystitis. Patient otherwise denied abdominal pain. Unlikely acute cholecystitis. Surgery signed off. Elevated troponin possible type II MN. Troponin normalized now Hypertension history Hypokalemia and hypomagnesemia\. Replaced Macrocytic anemia.Likely related to EtOH abuse DVT prophylaxisHeparin subcu Plan: Patient will be continued on antibiotics in the form of ceftriaxone for urinary tract infection and follow-up urine culture report from snf.. Replace electrolyte. Ultrasound of the abdomen was done and general surgery has seen the patient. No surgical intervention needed at this time , Patient did improve clinically. No active complaints of abdominal pain or nausea vomiting. Tolerating oral diet. Surgery signed off. Urinalysis not suggestive of infection. Patient should have been completed ceftriaxone for 5 days by tomorrow. May not require antibiotics at discharge. Patient is stable to be transferred to rehab pending prior authorization. Further recommendations based on the clinical course. Time with Patient: Greater than 30
[2017-12-11] MEDS: HEPARIN SODIUM,PORCINE 5,000 UNIT/ML 1 ML VIAL SQ SCH ×2 (01:16→08:07)
[2017-12-11] MEDS: LORazepam 1 MG TAB PO PRN (02:45)
[2017-12-11 07:21] VITALS: TEMP 98.1
[2017-12-11] MEDS: MULTIVITAMINS, THERA 1 EACH TAB PO SCH (08:07)
[2017-12-11] MEDS: METOPROLOL TARTRATE 50 MG TAB PO SCH (08:07)
[2017-12-11] MEDS: ASPIRIN 81 MG PO SCH (08:07)
[2017-12-11] MEDS: LEVOTHYROXINE 50 MCG TAB PO SCH (08:07)
[2017-12-11] MEDS: cefTRIAXone IN SWFI 1,000 MG/10 ML SYRINGE IVP SCH (08:11)
[2017-12-11] MEDS: FOLIC ACID 1 MG TAB PO SCH (10:57)
[2017-12-11] MEDS: THIAMINE 100 MG TAB PO SCH (10:57)
[2017-12-11 14:24] VITALS: BP 99/63; PULSE 67
--- NOTE | 2017-12-11 14:49 | P.DS ---
Providers Date of admission: 12/07/17 17:26 Expected date of discharge: 12/11/17 Attending physician: Kaylee Laird Consults: 12/06/17 22:42 Consult Physician Routine Consulting Provider: Devang Still Reason/Comments: Gallbladder sludge Do you want consulting provider notified?: Yes, Notify in am Primary care physician: Physician Nonstaff Hospital Course: Final DIagnoses: Altered mental status. Possible metabolic encephalopathy. Resolving now. Recent urinary tract infection.Urinalysis not suggestive of infection. Completed ceftriaxone for 5 days. Alcohol abuse. Last drink in 10 days back. No DTs Elevated liver enzymes and bilirubin and hepatocellular disease/fatty infiltration of the liver without abdominal pain. Due to alcohol abuse. Paroxysmal atrial fibrillation. Continue with aspirin. Elevated bilirubin with gallbladder sludge. Acute cholecystitis, ruled out. Surgery signed off. Elevated troponin possible type II TN. Troponin normalized now Hypertension history Hypokalemia and hypomagnesemia\. Replaced Macrocytic anemia.Likely related to EtOH abuse HOSPITAL COURSE:Patient is a 77-year-old female with known history of hypertension was sent to ER from extended care facility due to altered mental status. According to the assisted the patient has had altered mental status for a few weeks now and they have noted now that she has urinary tract infection that she would not keep her IV in and she was becoming aggressive so they sent to [facility]. The patient has been to [facility] prior to be transferred to [facility]. According to EMS she has been stable in route but she is only alert and oriented 1 . few weeks ago she was alert and oriented 4. Patient denied any complaints of abdominal pain. No nausea vomiting. No chest pain or shortness of breath. Patient does not have any fever or chills. Patient is unable to give any history there is no family member with the patient and there is no caregiver with the patient. At the assisted patient is being treated for enterococcus urinary tract infection. UA is negative at this time CT head showed use related atrophic changes and chronic small was a disease without acute intracranial process Chest x-ray no intracranial process EKG sinus rhythm Troponin 0.064 and 0.033 Bilirubin 2.9. Slightly elevated AST Ultrasound of ABDOMEN SHOWED gallbladder sludge. Possible cholecystitis. Hepatocellular disease and fatty infiltration. 12/07/2017 Patient is more awake and oriented today. Able to sit in the chair and tolerating oral diet. Denied any complaints of abdominal pain. No nausea no vomiting. Discussed with her son at bedside. Aberrantly patient has been having alcohol abuse and last drink was about 10 days back. Patient was seen by general surgery and due to lack of pain and some likely acute cholecystitis. Bilirubin level is trending down and hepatocellular disease is likely due to alcohol abuse. No fever no chills. Patient is being continued on antibiotics in the form of ceftriaxone Monitor for alcohol withdrawal symptoms as well. 12/08/2017 Patient is more awake and oriented today. Able to tolerate oral diet. No complaints of abdominal pain. No nausea vomiting or abdominal pain. Bilirubin level trending down to 2.2 today. Gen. surgery general surgery is following. Patient went into atrial fibrillation yesterday evening. Currently maintaining sinus rhythm. Started back on beta blockers. 12/09/2017 Patient is more awake and oriented today. Tolerating oral diet. No complaints of abdominal pain. Heart rate is better controlled. No other acute overnight issues. Continue PT OT and and anticipate discharge next 24 hours. 12/10/2017 Patient denied any complaints today. Tolerating oral diet. No complaints of abdominal pain. No nausea vomiting or diarrhea. Anticipate discharged to rehab pending authorization. 12/11/17 Completed Antibiotic regime. VSS. No overnight events. cleared for discharge by consults. SIgnificant clinical improvement. Patient is being discharged to [facility] in a stable COndition with guarded prognosis. PHYSICAL EXAMINATION: GENERAL:No acute distress, awake alert and oriented times 1. Plesantly confused. CHEST EXAMINATION: Trachea is central. Symmetrical expansion. Lung merrill clear to auscultation and percussion. CARDIAC: Normal S1, S2 with no gallops. No murmurs ABDOMEN: Soft. Nontender. No right upper quadrant tenderness. Bowel sounds normal. No organomegaly. No abdominal bruits. Neurologically awake, alert, oriented x1 with well-coordinated movements. No new focal deficits noted The impression and plan of care has been dictated as directed. : I performed a history and examination of this patient, discussed the same with the dictator. I agree with the dictator's note ,documented as a scribe. Any additional findings or plans will be noted. Time Taken: 35 min. Patient Condition at Discharge: Stable Plan - Discharge Summary Discharge Rx Participant: No New Discharge Prescriptions: New Thiamine [Vitamin B-1] 100 mg PO DAILY@1200 #14 tab Folic Acid 1 mg PO DAILY@1200 tab Continue Metoprolol Tartrate [Lopressor] 50 mg PO BID@08,1999 Multivitamins, Thera [Multivitamin (formulary)] 1 tab PO DAILY@0800 Levothyroxine Sodium [Synthroid] 50 mcg PO DAILY Aspirin 81 mg PO DAILY@0800 Calcium Carbonate [Tums] 1,000 mg PO Q4H PRN PRN Reason: Dyspepsia Discontinued LORazepam [Ativan] 1 mg PO TID@ Heparin Sodium,Porcine [Heparin Sodium] 5,000 unit SQ TID@ Discharge Medication List Aspirin 81 mg PO DAILY@0800 12/06/17 [History] Calcium Carbonate [Tums] 1,000 mg PO Q4H PRN 12/06/17 [History] Levothyroxine Sodium [Synthroid] 50 mcg PO DAILY 12/06/17 [History] Metoprolol Tartrate [Lopressor] 50 mg PO BID@0800,199912/06/17 [History] Multivitamins, Thera [Multivitamin (formulary)] 1 tab PO DAILY@0800 12/06/17 [ History] Thiamine [Vitamin B-1] 100 mg PO DAILY@1200 #14 tab 12/10/17 [Rx] Folic Acid 1 mg PO DAILY@1200 tab 12/11/17 [Rx] Follow up Appointment(s)/Referral(s): Austin Barnes MD [REFERRING] - 3 Days (at [facility]) Activity/Diet/Wound Care/Special Instructions: [facility] CBC,CMP in 3 days Regular Diet Discharge Disposition: TRANSFER TO SNF/ECF
--- NOTE | 2017-12-13 08:05 | CDI ---
Last Revision, June 2017 Documentation Clarification Form Date: 12/13/17 From: Nivia Johnson Phone: If you have question, contact Vianney Stratton, Special Diet Cook at [phone] M-F 8:30 am to 6pm. Admit Date: 12/07/2017 5:26:00 PM Patient Name: Magalys Toussaint Visit Number: [id number] Discharge Date: 12/11/17 ATTENTION: The Clinical Documentation Specialists (CDI) and [facility] Coding Staff appreciate your assistance in clarifying documentation. Please respond to the clarification below the line at the bottom and electronically sign. The CDI & [facility] Coding staff will review the response and follow-up if needed. Please note: Queries are made part of the Legal Health Record. If you have any questions, please contact the author of this message via ITS. Dr. Robert Laird Ms Toussaint was admitted from her extended care facility for altered mental status. According to the ECF she had altered mental status for a few weeks, they treated her for a UTI, but then she became aggressive. According to EMS she was only alert and oriented x1 en route. Urinalysis here was not suggestive of infection but antibiotics were continued. General surgery was consulted and ruled out acute cholecysitis as the etiololgy of the patients confusion. Final diagnosis on the discharge summary is Altered mental status. Possible metabolic encephaloathy. Resolving now. Please clarify the cause of this patients metabolic encephalopathy, if known. MTDD
== END 2017-12-11 16:17 | DRG 71 ==
LOC: EC 07:41 → 6SEL 09:24 → OBSVTOIN 12-07 17:26 → 4MS4W 12-08 14:15
PROVIDERS: ADMIT Hospitalist; ATTEND Hospitalist
DX: G93.41 Metabolic encephalopathy (principal); N39.0 Urinary tract infection, site not specified; K76.0 Fatty (change of) liver, not elsewhere classified; I48.0 Paroxysmal atrial fibrillation; F10.10 Alcohol abuse, uncomplicated; E87.6 Hypokalemia; E83.42 Hypomagnesemia; D53.9 Nutritional anemia, unspecified; R77.8 Other specified abnormalities of plasma proteins; E03.9 Hypothyroidism, unspecified; F41.9 Anxiety disorder, unspecified; I10 Essential (primary) hypertension; K82.8 Other specified diseases of gallbladder; G47.00 Insomnia, unspecified; Z87.440 Personal history of urinary (tract) infections; Z81.1 Family history of alcohol abuse and dependence; Z79.82 Long term (current) use of aspirin; Z79.890 Hormone replacement therapy; Z79.899 Other long term (current) drug therapy; Z98.42 Cataract extraction status, left eye; Z98.41 Cataract extraction status, right eye
CPT/HCPCS: 36415; 70450; 71046; 76700; 80053; 80306; 81003; 82140; 82550; 82553; 82607; 83735; 84132; 84443; 84484; 85025; 85610; 85730; 93005; 94760; 96361; 96365; 96375; 99285